=== PATIENT | female | born 1975 | race American Indian/Alaskan Native ===

== ENCOUNTER 2018-03-24 08:16 | Emergency (ER) | payer OTHER ==
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
[2018-03-24] MEDS ORDERED: TORADOL IM ONE (09:13)
[2018-03-24 10:06] LABS: HCG Qualitative,Urine Negative (Negative)
--- NOTE | 2018-03-24 11:13 | XRay Report ---
LUMBOSACRAL SPINE, 3 VIEWS: History: Back pain Findings: The vertebral bodies, disk spaces and posterior elements are intact. No compression deformity or malalignment. The SI joints are symmetric and unremarkable. Impression: 1. No evidence for acute injury to the lumbar spine.
--- NOTE | 2018-03-24 11:14 | XRay Report ---
CERVICAL SPINE, 3 views: History: Neck pain. Findings: The vertebral bodies, disk spaces, posterior elements and prevertebral soft tissues are unremarkable. The dens is intact. No acute fracture or malalignment is identified. Impression: 1. No evidence for acute injury to the cervical spine.
--- NOTE | 2018-03-24 11:14 | XRay Report ---
THORACIC SPINE, 2 VIEWS: HISTORY: back pain. Normal bone mineralization. No evidence for compression deformity, malalignment, or bone lesion. The posterior ribs are intact. The paraspinal soft tissues are within normal limits. IMPRESSION: Thoracic spine within normal limits.
[2018-03-24 11:45] VITALS: BP 126/72
== END 2018-03-24 11:43 | disposition home or self-care (01) ==
LOC: ED 08:16
DX: S39.012A Strain of muscle, fascia and tendon of lower back, initial encounter (principal); S46.912A Strain of unspecified muscle, fascia and tendon at shoulder and upper arm level, left arm, initial encounter; S46.911A Strain of unspecified muscle, fascia and tendon at shoulder and upper arm level, right arm, initial encounter; Z88.0 Allergy status to penicillin; V89.2XXA Person injured in unspecified motor-vehicle accident, traffic, initial encounter; Y93.89 Activity, other specified; Y92.488 Other paved roadways as the place of occurrence of the external cause; Y99.8 Other external cause status
CPT/HCPCS: 72040; 72070; 72100; 81025; 96372; 99283; J1885

== ENCOUNTER 2018-10-28 19:54 | Emergency (ER) | payer OTHER ==
[2018-10-28] MEDS ORDERED: TYLENOL ONE (21:03)
[2018-10-28] MEDS ORDERED: TYLENOL PO ONE (21:06)
[2018-10-28] MEDS ORDERED: NACL 0.9% 1000 ML 1,000 ML IV ONE (22:39)
--- NOTE | 2018-10-28 22:46 | Emergency Department Report ---
HPI - General Chief Complaint: Dental/Oral Time Seen by Provider: 10/28/18 22:34 - HPI HPI: Neo Wolf The patient is a 43-year-old female presenting with chief complaint of weakness and fever. The patient states she had dental extraction of her upper teeth 4 days ago. Patient states she was started on clindamycin and has been compliant. Patient states this morning she noticed the fever as well as pain at the extraction sites. Patient states she's been spitting up brown colored liquid. Patient states she came to the emergency department because she's felt tired. Location: [See above] Duration: One day Quality: Pain Severity: Moderate Modifying factors: [see above] Context: [see above] Mode of transportation: [not driving] ED Past Medical Hx - Past Medical History Previous Medical History?: Yes Additional medical history: EXTRACTIONS OF UPPER TEETH ON WEDNESDAY - Surgical History Past Surgical History?: Yes Additional Surgical History: ECTOPIC SURGERY/CS - Family History Family history: no significant - Social History Smoking Status: Never Smoker Substance Use Type: None (denies illicit drug use) - Medications Home Medications: Home Medications Medication Instructions Recorded Confirmed Last Taken Type Ibuprofen [Motrin 800 MG tab] 800 mg PO Q8HR PRN #15 tablet 03/24/18 10/28/18 Unknown Rx Clindamycin 300 mg PO Q8H 10/28/18 10/28/18 Unknown History HYDROcodone/ACETAMINOPHEN [[place] 1 - 2 each PO Q6H #20 tablet 10/29/18 Unknown Rx 5-325 Tablet] ED Review of Systems ROS: Stated complaint: FEVER MOUTH PAIN Other details as noted in HPI Constitutional: fever Eyes: denies: eye pain ENT: dental pain Respiratory: no symptoms reported Cardiovascular: denies: chest pain Endocrine: no symptoms reported Gastrointestinal: denies: abdominal pain Genitourinary: denies: dysuria Musculoskeletal: denies: back pain Neurological: denies: headache Physical Exam - Physical Exam Vital Signs: Vital Signs 10/28/18 10/28/18 20:00 20:55 Temperature 100.4 F H 100.4 F H Pulse Rate 118 H 117 H Respiratory 16 18 Rate Blood Pressure 115/72 115/72 O2 Sat by Pulse 98 Oximetry Physical Exam: GENERAL: The patient is well-developed well-nourished female lying on stretcher not appearing to be in acute distress. [] HEENT: Normocephalic. Atraumatic. Extraocular motions are intact. No drainage seen from the extraction sites. NECK: Supple. Trachea midline CHEST/LUNGS: Clear to auscultation. There is no respiratory distress noted. HEART/CARDIOVASCULAR: Regular. There is tachycardia. There is no gallop rub or murmur. ABDOMEN: Abdomen is soft, nontender. Patient has normal bowel sounds. There is no abdominal distention. SKIN: There is no rash. There is no edema. There is no diaphoresis. NEURO: The patient is awake, alert, and oriented. The patient is cooperative. The patient has normal speech MUSCULOSKELETAL: There is no evidence of acute injury. ED Course Vital Signs 10/28/18 10/28/18 20:00 20:55 Temperature 100.4 F H 100.4 F H Pulse Rate 118 H 117 H Respiratory 16 18 Rate Blood Pressure 115/72 115/72 O2 Sat by Pulse 98 Oximetry ED Medical Decision Making - Lab Data Result diagrams: 10/28/18 22:53 10/28/18 22:53 - Differential Diagnosis bacteremia, gingivitis, Critical care attestation.: If time is entered above; I have spent that time in minutes in the direct care of this critically ill patient, excluding procedure time. ED Disposition Clinical Impression: S/P tooth extraction, Pain of gingiva, Fever Disposition: TO HOME OR SELFCARE Is pt being admited?: No Does the pt Need Aspirin: No Condition: Stable Instructions: Toothache (ED) Additional Instructions: Return to the emergency department immediately should you develop worsening symptoms, fever, inability to tolerate food or liquid or any other concerns. Prescriptions: HYDROcodone/ACETAMINOPHEN [[place] 5-325 Tablet] 1 - 2 each PO Q6H #20 tablet Referrals: PARRISH AQUINO MD [Primary Care Provider] - 3-5 Days your, dentist [Other] - [facility] Time of Disposition: 01:32
[2018-10-28 23:29] LABS: BUN/Creatinine Ratio 9; Blood Urea Nitrogen 7 mg/dL (7-17); Calcium 9.2 mg/dL (8.4-10.2); Hemolysis Index 7
[2018-10-28 23:40] VITALS: BP 108/82
[2018-10-28 23:54] LABS: Basophils % (Auto) 0.1 % (0.0-1.8); Eosinophils % (Auto) 0.1 % (0.0-4.3); Hematocrit 35.5 % (30.3-42.9); Hemoglobin 11.8 gm/dl (10.1-14.3); Lymphocytes # (Auto) 2.5 K/mm3 (1.2-5.4); Lymphocytes % (Auto) 38.6 % (13.4-35.0); Mean Corpuscular HGB Conc 33 % (30-34); Mean Corpuscular Volume 81 fl (79-97); Monocytes # (Auto) 0.6 K/mm3 (0.0-0.8); Monocytes % (Auto) 9.1 % (0.0-7.3); Platelet Count 204 K/mm3 (140-440); Red Cell Distribution Width 13.5 % (13.2-15.2)
[2018-10-29] MEDS ORDERED: NORCO 5/325 PO ONE (00:33)
== END 2018-10-29 02:38 | disposition home or self-care (01) ==
LOC: ED 19:54
DX: K08.409 Partial loss of teeth, unspecified cause, unspecified class (principal); K05.10 Chronic gingivitis, plaque induced
CPT/HCPCS: 36415; 80048; 85025; 87040; 99283; J7030